=== PATIENT | male | born 1985 | race African-American/Black ===

== ENCOUNTER 2024-04-18 18:27 | Emergency (ER) | payer BC, MEDICAID, MEDICARE ==
[~2024-04-18] VITALS: Ht 177.8 cm; Wt 84.0 kg
[2024-04-18 18:31] VITALS: BP 124/74; PULSE 92; RESP 18; TEMP 36.7; O2SAT 99
== END 2024-04-18 22:06 | disposition left against medical advice (07) ==
LOC: ER 18:27
DX: M25.539 Pain in unspecified wrist (principal); Z53.21 Procedure and treatment not carried out due to patient leaving prior to being seen by health care provider